=== PATIENT | male | born 1970 | race Caucasian/White ===

== ENCOUNTER 2019-08-20 04:31 | Emergency (ER) | payer OTHER, SELFPAY ==
[2019-08-20 04:33] VITALS: BP 191/100; PULSE 70; RESP 18; TEMP 37; O2SAT 96; BMI 34.4
--- NOTE | 2019-08-20 04:37 | CT_ITS ---
STUDY: CT ABDOMEN AND PELVIS WITHOUT CONTRAST REASON FOR EXAM: Male, 48 years old. RIGHT FLANK PAIN RADIATES TO RLQ RADIATION DOSAGE (If Supplied By Facility): CTDIvol = ( 17.76 ) mGy, DLP = ( 989.67 ) mGycm TECHNIQUE: Transaxial images were obtained from the dome of the diaphragm to the symphysis pubis without oral contrast, and without intravenous contrast. Sagittal and coronal images were reconstructed. Individualized dose optimization techniques were used for this CT. COMPARISON: None. FINDINGS: The visualized lung bases are unremarkable. The visualized portions of the heart are within normal limits. Normal liver. There is a small calcified gallstone in an otherwise grossly normal-appearing gallbladder. Normal spleen. There is diffuse atrophy of the pancreas. Normal bilateral adrenal glands. As seen on axial images 104-105, there is a 3.5 mm wide mid right ureteral calculus at the L4 level. There is associated mild right hydronephrosis. Normal left kidney. There is a small hiatal hernia. Normal small intestine. There are multiple colonic diverticula consistent with diverticulosis. The appendix is visualized on axial images 106-114 and it appears normal.. Normal abdominal aorta. Normal inferior vena cava. Normal retroperitoneum. Normal urinary bladder. There is surgical mesh underlying the anterior pelvic wall, consistent with previous hernia repair. There are multilevel degenerative changes of the visualized lumbar spine. CT/Abdomen/Pelvis without Cont IMPRESSION: 3.5 mm wide mid right ureteral calculus at the L4 level. There is associated mild right hydronephrosis. Colonic diverticulosis, without evidence for acute diverticulitis. Small hiatal hernia. Gallstone in an otherwise grossly normal appearing gallbladder. Electronically Signed: Sha Escalera MD at 5:52 EDT , Service support ,
--- NOTE | 2019-08-20 04:37 | ED.VIS.GEN ---
History of Present Illness Chief Complaint: Flank Pain Informant: Patient Onset: Today Context: Sudden Onset Current Severity: Moderate Maximum Severity: Severe Narrative: Patient presents with right flank pain that woke him from sleep at 3 AM. Patient denies known history of kidney stones. He felt fine when he went to bed last night. No recent change in urinating habits. - Past Medical History (1) H/O hernia repair Status: Chronic Past Medical History - Allergies and Home Meds Allergies/Adverse Reactions: Allergies No Known Allergies Allergy (Verified 08/20/19 04:37) Primary Care Physician: Marleni Pang PA [Primary Care Provider] - Surgical History: herniorrhaphy Lives: Spouse/ Significant Other Review of Systems General: Denies: Chills, Fever Eyes: Denies: Visual changes - bilaterally ENT: Denies: Bilateral ear pain Cardiovascular: Denies: Chest pain Respiratory: Denies: Dyspnea, Cough Gastrointestinal: Reports: Abdominal pain - Right flank. Denies: Nausea, Vomiting Genitourinary: Denies: Dysuria, Hematuria Musculoskeletal: Reports: Back pain - Right flank Skin: Denies: Rash Neurological: Denies: Headache, Weakness Hematologic: Denies: Easy bruising, Easy bleeding Allergy: Denies: Uticaria Physical Exam Vital Signs/Narrative: Vital Signs Temp Pulse Resp BP Pulse Ox 08/20/19 04:33 98.6 F 70 18 191/100 H 96 Inital Vital Signs reviewed: Yes General: Well nourished, Well developed Head: Normocephalic ENT: Moist mucous membranes Neck: Supple Cardiovascular: Regular rate, Regular rhythm Respiratory: No distress, CTA bilaterally Abdomen: Soft, Nontender, Normal bowel sounds Back: CVA tenderness Extremities: Nontender Skin: Normal color Neurological: Alert, Oriented x3 Psychological: - - Anxious Diagnostic/Tx/Re-eval Impressions Abdomen/Pelvis CT 08/20/19 04:37 IMPRESSION: 3.5 mm wide mid right ureteral calculus at the L4 level. There is associated mild right hydronephrosis. Colonic diverticulosis, without evidence for acute diverticulitis. Small hiatal hernia. Gallstone in an otherwise grossly normal appearing gallbladder. Electronically Signed: Sha Escalera MD at 5:52 EDT , Service support , 08/20/19 04:37 Abdomen/Pelvis without Cont [CT] Stat Laboratory Results 08/20/19 08/20/19 08/20/19 04:45 04:45 05:43 WBC 7.5 RBC 5.19 Hgb 14.4 Hct 44.1 MCV 85.0 MCH 27.7 MCHC 32.7 RDW Std Deviation 36.9 RDW Coeff of Contreras 12.0 Plt Count 195 MPV 9.7 Immature Gran % (Auto) 0.100 Neut % (Auto) 54.5 Lymph % (Auto) 34.1 [place] % (Auto) 7.3 Eos % (Auto) 3.3 Baso % (Auto) 0.7 Absolute Neuts (auto) 4.1 Absolute Lymphs (auto) 2.56 Nucleated RBC % 0 Sodium 139 Potassium 3.3 L Chloride 108 H Carbon Dioxide 26.0 Anion Gap 5 BUN 18 Creatinine 1.13 Estim Creat Clear Calc 83.30 Est GFR (MDRD) Af Amer 88 Est GFR (MDRD) Non-Af 73 BUN/Creatinine Ratio 15.9 Glucose 120 H Calcium 8.4 L Urine Color Yellow Urine Clarity Clear Urine pH 6.0 Ur Specific [place] 1.020 Urine Protein Negative Urine Glucose (UA) Normal Urine Ketones 15 H Urine Occult Blood 250 H Urine Nitrite Negative Urine Bilirubin Negative Urine Urobilinogen Normal Ur Leukocyte Esterase Negative Urine RBC 10-25 SEEN Urine WBC 0 SEEN Ur Squamous Epith Cells 0 SEEN Urine Bacteria 0 SEEN Urine Mucus 0 SEEN - Medical Decision Making Patient received Toradol, Zofran, and morphine for pain control. After CT scan he was given a second dose of morphine for continued pain. At this time patient is resting comfortably. We did discuss his test results. Stone is measuring 3.5 mm and he should be able to pass this. He will be given prescriptions for [place], Zofran, Toradol, and Flomax. He will be referred to Dr. Gould for follow-up. He is given return instructions. ED Disposition - Plan for ED Patient: Disposition: Home or Assisted Living Diagnosis: Kidney stone on right side Instructions: ED Renal Stone w Colic Prescriptions: Tamsulosin HCl [Flomax] 0.4 mg PO DAILY #7 capsule Hydrocodone Bitart/Apap 5-325 [[place] 5MG-325MG] 1 tablet PO Q6H PRN PRN 3 Days #10 tablet PRN Reason: Pain Ketorolac [Toradol] 10 mg PO Q6H PRN #14 tablet PRN Reason: Pain Score 4-10/10 Ondansetron [Zofran Odt] 4 mg PO Q8H PRN PRN #10 tablet PRN Reason: Nausea Referrals: George Gould MD [STAFF PHYSICIAN] - 3-5 Days if not improving
[2019-08-20] MEDS: 0.9% Normal Saline 1,000 ML 250 ML IV (04:47)
[2019-08-20] MEDS: Ondansetron 4 MG/2 ML Vial IV (04:48)
[2019-08-20] MEDS: Ketorolac 30 MG/ML Syringe IV (04:49)
[2019-08-20 04:51] VITALS: BP 183/109
[2019-08-20] MEDS: Morphine 4 MG/ML Syringe IV ×2 (04:51→05:55)
[2019-08-20 04:55] LABS: Absolute Lymphocyte Count 2.56 X10^3/uL (0.83-4.51); Absolute Neutrophil Count 4.1 X10^3/uL (2.0-7.7); Basophil# 0.05 X10^3/uL; Basophil% 0.7 % (0-1); Eosinophil# 0.25 X10^3/uL; Eosinophils% 3.3 % (0-5); Hematocrit 44.1 % (40-54); Hemoglobin 14.4 g/dL (13.0-16.5); Lymphocyte # 2.56 X10^3/ul (4.0); Lymphocyte % 34.1 % (19-41); Mean Corp Hgb Conc 32.7 g/dL (32-36); Mean Corpuscular Hgb 27.7 pg (27.0-32.0); Mean Platelet Vol. 9.7 fl (6.2-12.0); Monocyte# 0.55 X10^3/uL; Monocyte% 7.3 % (0-10); NRBC Flagged by Analyzer 0 % (0-5); Neutrophil # 4.08 X10^3/uL (2.7-7.7); Neutrophil % 54.5 % (47-70); Platelet Count 195 K/mm3 (150-450); RBC Distribution Width SD 36.9 fl (35.1-43.9); Red Blood Count 5.19 M/mm3 (4.6-6.2); White Blood Count 7.5 K/mm3 (4.4-11.0)
[2019-08-20 05:07] LABS: Anion Gap 5 (5-15); BUN 18 mg/dL (7-18); BUN/Creat Ratio 15.9 RATIO (10-20); Calcium,Total 8.4 mg/dL (8.5-10.1); Chloride 108 mmol/L (98-107); Creatinine, Serum 1.13 mg/dL (0.70-1.30); EST Glomerular Filtration Rate 73 mL/min (>60); Est Glom Filt Rate - Afr Amer 88 mL/min (>60); Glucose 120 mg/dL (74-106); Potassium 3.3 mmol/L (3.5-5.1); Sodium Level 139 mmol/L (136-145)
[2019-08-20 05:52] LABS: Bacteria 0 SEEN /hpf (None Seen); Color, Urine Yellow (Yellow); Glucose, Dipstick Normal (Normal); Ketone-Dipstick 15 mg/dl (Negative); Leukocyte Esterase-Dipstick Negative /ul (Negative); Mucous, Urine 0 SEEN /hpf (<or=2+); Nitrite-Dipstick Negative (Negative); Occult Blood-Urine 250 /ul (Negative); Protein-Dipstick Negative (Negative); Squamous Epithelial Cells - UA 0 SEEN /hpf (0-5); Urine Bilirubin Dipstick Negative (Negative); Urine Clarity Clear (Clear); Urine Urobilinogen Normal (Normal); White Blood Cells 0 SEEN /hpf (0-5)
[2019-08-20 05:58] VITALS: BP 188/99; PULSE 58; RESP 16; O2SAT 97
[2019-08-20 05:58] LABS: Red Blood Cells-Urine 10-25 SEEN /hpf (0-5)
[2019-08-20 06:17] VITALS: BP 188/98; PULSE 63; RESP 16; O2SAT 97
== END 2019-08-20 06:40 | disposition home or self-care (01) ==
PROVIDERS: Emergency Provider Emergency Medicine; PCP Physician Assistant
DX: N13.2 Hydronephrosis with renal and ureteral calculous obstruction (principal); K44.9 Diaphragmatic hernia without obstruction or gangrene; K57.30 Diverticulosis of large intestine without perforation or abscess without bleeding; K80.20 Calculus of gallbladder without cholecystitis without obstruction
CPT/HCPCS: 74176; 80048; 81001; 85025; 96361; 96374; 96375; 99283; J7030; A4216; J2405

== ENCOUNTER 2020-08-25 08:46 | Outpatient (RCR) | payer OTHER, SELFPAY | END 2020-09-29 23:59 | LOC: IMMUN 08:46 | PROVIDERS: PCP Physician Assistant; Referring Provider Family Medicine; Visit Provider Family Medicine | DX: Z23 Encounter for immunization (principal) | CPT/HCPCS: 0001A; 91300 ==

== ENCOUNTER 2023-04-14 02:05 | Emergency (ER) | payer OTHER, SELFPAY ==
[2023-04-14 02:07] VITALS: PULSE 84; RESP 16; TEMP 36.9; O2SAT 96; BMI 35.6
[2023-04-14 02:11] VITALS: BP 189/101
--- NOTE | 2023-04-14 02:12 | EDS_ITS ---
HPI History of Present Illness Chief Complaint: Flank Pain Informant: patient Onset/Context/Timing Onset: Today Context: Sudden Onset Timing: Continuous Quality: Aching Location: Left lower abdomen and left flank Worsened by: Nothing Relieved by: Nothing Narrative Narrative: Patient presents with left flank pain that began today. Patient states it began approxi-1 hour prior to arrival. Patient states it began rather suddenly. Patient states it has been constant. Patient describes the pain as aching. Patient states the pain is over the left lower abdomen and into his left flank. Patient states nothing makes it worse and nothing makes it better. Patient admi ts to a mild cough. Patient denies any nausea or vomiting. Patient denies any dysuria or hematuria. Patient admits to some back pain. Patient denies any fevers or chills. PFSH PFS Medical History (Updated 04/14/23 @ 05:[address] Israel Rice DO) HTN (hypertension) Kidney stone Home Medications latanoprost (PF) 0.005 % eye drops 7.5 ml OP DAILY 08/20/19 [History Last Taken Unknown] amlodipine 5 mg tablet 5 mg PO DAILY 04/14/23 [History Last Taken Unknown] losartan 50 mg tablet 50 mg PO DAILY 04/14/23 [History Last Taken Unknown] oxycodone-acetaminophen 5 mg-325 mg tablet 1 tab PO Q6H PRN PRN pain 5 days #20 TABLETS 04/14/23 [Rx Last Taken Unknown] Allergy/AdvReac Type Severity Reaction Status Date / Time No Known Allergies Allergy Verified 04/14/23 02:06 Surgical History (Updated 04/14/23 @ 02:[address] Israel Rice DO) H/O hernia repair Social History Smoking Status: Never smoker ROS ROS ED Constitutional Constitutional ED: Denies chills or fever(s) Eyes Eyes: Denies blurry vision or change in vision ENT ENT ED: Denies rhinorrhea or sore throat Cardiovascular Cardiovascular: Denies chest pain or palpitations Respiratory/Chest Respiratory/Chest: Reports cough; Denies dyspnea Gastrointestinal Gastrointestinal: Denies nausea or vomiting Genitourinary Genitourinary ED: Denies dysuria or hematuria Musculoskeletal Musculoskeletal: Reports back pain; Denies neck pain Integumentary Denies abscess or rash Neurologic Neurologic: Denies headache(s) or weakness Allergic/Immunologic Allergic/Immunologic ED: Denies mouth swelling or urticaria EXAM Physical Exam Const Vital Signs: 04/14/23 02:07 04/14/23 02:11 04/14/23 05:08 Temperature 98.5 F Temperature Source Oral Pulse Rate 84 74 Respiratory Rate 16 16 Blood Pressure 189/101 H Blood Pressure Mean 130 Pulse Ox 96 94 Oxygen Delivery Method Room Air 04/14/23 05:58 Temperature Temperature Source Pulse Rate 95 Respiratory Rate 20 H Blood Pressure 176/94 H Blood Pressure Mean 121 Pulse Ox 95 Oxygen Delivery Method Positive well nourished and well developed General Appearance ED: well developed and NAD HEENT Reports moist mucous membranes Neck supple and no JVD Resp normal respiratory effort and clear to auscultation bilaterally Cardio regular rate and regular rhythm GI Palpation: soft and tender LLQ and LUQ; Negative for guarding or rebound tenderness present Back/Spine General Back: CVA tenderness left Extremity normal to inspection General Extremety ED: Negative for edema or tenderness General Extremity: Negative for edema Neuro oriented x3, CN's II-XII intact bilaterally and no sensory deficits noted Sensorium / Orientation: alert Motor Exam: strength 5/5 throughout MDM MDM MDM Narrative Medical decision making narrative: Differential diagnosis includes diverticulitis, diverticulosis, ureteral calculus, bowel obstruction, perforation, urinary tract infection, pyelonephritis, and gastroenteritis. CBC will be obtained to assess for leukocytosis and anemia. Basic metabolic profile will be obtained to assess for renal function and electrolyte abnormality. Urinalysis will be obtained to assess for urinary tract infection and hematuria. CT scan of the abdomen pelvis will be obtained to assess for ureteral calculus, diverticulitis, bowel obstruction, and perforation. Lab Data Attestation: I reviewed the patient's lab results. Lab results narrative: CBC was reviewed and was within normal limits. Basic metabolic profile was reviewed and was within normal limits. Urinalysis was reviewed. There are 5-10 red blood cells and occult blood of 150. There is no evidence of urinary tract infection. Labs: Laboratory Results - last 24 hr 04/14/23 04/14/23 02:25 04:28 WBC 6.5 RBC 5.16 Hgb 14.6 Hct 45.2 MCV 87.6 MCH 28.3 MCHC 32.3 RDW Std Deviation 38.3 RDW Coeff of [place]reras 11.9 Plt Count 188 MPV 9.6 Immature Gran % (Auto) 0.300 Neut % (Auto) 61.2 Lymph % (Auto) 23.9 [place] % (Auto) 8.9 Eos % (Auto) 4.9 Baso % (Auto) 0.8 Absolute Neuts (auto) 4.0 Absolute Lymphs (auto) 1.55 Nucleated RBC % 0 Sodium 139 Potassium 3.8 Chloride 109 H Carbon Dioxide 27.0 Anion Gap 3 L BUN 20 H Creatinine 1.17 Estim Creat Clear Calc 76.87 Est GFR (MDRD) Af Amer 83 Est GFR (MDRD) Non-Af 69 BUN/Creatinine Ratio 17.1 Glucose 148 H Calcium 8.9 Urine Color Yellow Urine Clarity Clear Urine pH 7.0 Ur Specific [place] 1.015 Urine Protein 15 H Urine Glucose (UA) Normal Urine Ketones 5 H Urine Occult Blood 150 H Urine Nitrite Negative Urine Bilirubin Negative Urine Urobilinogen Normal Ur Leukocyte Esterase Negative Urine RBC 5-10 SEEN Urine WBC 0 SEEN Ur Squamous Epith Cells 0 SEEN Urine Bacteria 0 SEEN Urine Mucus 0 SEEN Radiography Diagnostic Testing: Clinical Impression(s) from Imaging Studies Abdomen/Pelvis CT 04/14/23 02:25 IMPRESSION: 1. There is a 3 mm stone in the left mid ureter causing mild obstructive changes. 2. Small stone in the gallbladder. Electronically Signed: Rodríguez Goldberg MD at 3:24 EST , CT scan of the abdomen pelvis was obtained. There is a 3 mm stone in the left mid ureter causing mild obstructive changes. There is also a small stone in the gallbladder noted. This was interpreted by the radiologist and was also independently reviewed by myself. Treatment and Re-Evaluation :: Patient was given IV fluids, morphine, and Zofran. Patient was feeling better on reevaluation. Patient was given a prescription for Percocet. Patient was instructed to drink plenty of fluids. Patient was given a referral for urology follow-up. Patient was instructed to return if worse in any way. Patient understood and was agreeable with the plan. All questions were answered. Discharge Plan Triage Chief Complaint: Flank Pain ED Provider: Israel Rice Dx/Rx/DC Orders Clinical Impression: Calculus of left ureter, Hypertension Instructions: ED Kidney Stone with Pain Prescriptions: New oxycodone-acetaminophen [oxycodone-acetaminophen] 5-325 mg tablet 1 tab PO Q6H PRN PRN (Reason: pain) 5 Days Qty: 20 0RF No Action latanoprost (PF) 7.5 ML drops 7.5 ml OP DAILY losartan 50 mg tablet 50 mg PO DAILY Patient Comments: take 1 tablet by mouth once daily amlodipine 5 mg tablet 5 mg PO DAILY Patient Comments: take 1 tablet by mouth once daily Primary Care Provider: Desirae Worthington NP Referrals: George Gould MD [Med Staff - Active Staff] - 3-5 Days NOT,DEFINED [Non-Staff] - Desirae Worthington NP, [employer] [Primary Care Provider] - 3-5 Days Disposition Disposition: Home, Self Care Discharge Date/Time: 04/14/23 05:59
--- NOTE | 2023-04-14 02:25 | CT_ITS ---
EXAM: CT ABDOMEN AND PELVIS WITHOUT INTRAVENOUS CONTRAST CLINICAL INDICATION: Left flank pain TECHNIQUE: Helically acquired images were obtained of the abdomen and pelvis without intravenous contrast. This CT exam was performed using one or more of the following dose reduction techniques: automated exposure control, adjustment of the mA and/or kV according to patient size, and/or use of iterative reconstruction technique. RADIATION DOSE: CTDIvol = 19.96 mGy, DLP = 1142.00 mGy-cm COMPARISON: No relevant prior studies available. FINDINGS: LOWER THORAX: Small hiatal hernia. Lung bases are clear. No cardiomegaly. No significant pericardial effusion. ABDOMEN: LIVER: Unremarkable. Homogeneous. GALLBLADDER AND BILE DUCTS: Small stone in the gallbladder. No gallbladder distention or wall edema. No intra- or extrahepatic biliary ductal dilation. PANCREAS: Some fatty atrophy of the pancreas. No focal cystic mass. SPLEEN: Unremarkable. Normal size without focal cystic or solid mass. ADRENALS: Unremarkable. No nodules. KIDNEYS AND URETERS: There is a 3 mm stone in the left mid ureter causing mild obstructive changes. Normal renal size and position. STOMACH AND BOWEL: Unremarkable. No stomach or bowel distention. No focal inflammatory change. PELVIS: APPENDIX: The appendix is normal. BLADDER: Unremarkable. REPRODUCTIVE: Unremarkable as visualized. No mass. ABDOMEN and PELVIS: INTRAPERITONEAL SPACE: Unremarkable. No ascites or other fluid collection. No free air. BONES/JOINTS: Degenerative changes of the spine. No suspicious lytic or blastic abnormality. SOFT TISSUES: Prior low ventral abdominal wall hernia repair. VASCULATURE: Unremarkable. Abdominal aorta is non-dilated. LYMPH NODES: Unremarkable. No enlarged lymph nodes. CT/Abdomen/Pelvis without Cont IMPRESSION: 1. There is a 3 mm stone in the left mid ureter causing mild obstructive changes. 2. Small stone in the gallbladder. Electronically Signed: Rodríguez Goldberg MD at 3:24 EST ,
[2023-04-14] MEDS: Ondansetron 4 MG/2 ML Vial IV (02:35)
[2023-04-14] MEDS: 0.9% Normal Saline (1000mL) 1,000 ML 1000 ML IV (02:35)
[2023-04-14] MEDS: Morphine 4 MG/ML Syringe IV ×2 (02:35→03:18)
[2023-04-14 02:42] LABS: Absolute Lymphocyte Count 1.55 X10^3/uL (0.83-4.51); Basophil# 0.05 X10^3/uL; Basophil% 0.8 % (0-1); Eosinophil# 0.32 X10^3/uL; Eosinophils% 4.9 % (0-5); Hematocrit 45.2 % (40-54); Hemoglobin 14.6 g/dL (13.0-16.5); Lymphocyte # 1.55 X10^3/ul (0.83-4.51); Lymphocyte % 23.9 % (19-41); Mean Corp Hgb Conc 32.3 g/dL (32-36); Mean Corpuscular Hgb 28.3 pg (27.0-32.0); Mean Corpuscular Volume 87.6 fL (80-94); Mean Platelet Vol. 9.6 fl (6.2-12.0); Monocyte# 0.58 X10^3/uL; Monocyte% 8.9 % (0-10); NRBC Flagged by Analyzer 0 % (0-5); Neutrophil # 3.97 X10^3/uL (2.7-7.7); Neutrophil % 61.2 % (47-70); Platelet Count 188 K/mm3 (150-450); RBC Distribution Width CV 11.9 % (11.6-14.6); RBC Distribution Width SD 38.3 fl (35.1-43.9); Red Blood Count 5.16 M/mm3 (4.6-6.2); White Blood Count 6.5 K/mm3 (4.4-11.0)
[2023-04-14 02:55] LABS: Anion Gap 3 (5-15); BUN 20 mg/dL (7-18); BUN/Creat Ratio 17.1 RATIO (10-20); Calcium,Total 8.9 mg/dL (8.5-10.1); Chloride 109 mmol/L (98-107); Creatinine, Serum 1.17 mg/dL (0.70-1.30); EST Glomerular Filtration Rate 69 mL/min (>60); Est Glom Filt Rate - Afr Amer 83 mL/min (>60); Estimated Creatinine Clearance 76.87 ml/min; Glucose 148 mg/dL (74-106); Potassium 3.8 mmol/L (3.5-5.1); Sodium Level 139 mmol/L (136-145)
[2023-04-14 04:33] LABS: Bacteria 0 SEEN /hpf (None Seen); Mucous, Urine 0 SEEN /hpf (<or=2+); Squamous Epithelial Cells - UA 0 SEEN /hpf (0-5); White Blood Cells 0 SEEN /hpf (0-5)
[2023-04-14 04:34] LABS: Color, Urine Yellow (Yellow); Glucose, Dipstick Normal (Normal); Ketone-Dipstick 5 mg/dl (Negative); Leukocyte Esterase-Dipstick Negative /ul (Negative); Nitrite-Dipstick Negative (Negative); Occult Blood-Urine 150 /ul (Negative); Protein-Dipstick 15 mg/dl (Negative); Specific Gravity, Urine 1.015 (1.002-1.030); Urine Bilirubin Dipstick Negative (Negative); Urine Clarity Clear (Clear); Urine Urobilinogen Normal (Normal)
[2023-04-14 04:42] LABS: Red Blood Cells-Urine 5-10 SEEN /hpf (0-5)
[2023-04-14 05:08] VITALS: PULSE 74; RESP 16; O2SAT 94
[2023-04-14 05:58] VITALS: BP 176/94; PULSE 95; RESP 20; O2SAT 95
== END 2023-04-14 05:59 | disposition home or self-care (01) ==
PROVIDERS: Emergency Provider Emergency Medicine; PCP Registered Nurse; Visit Provider Emergency Medicine
DX: N20.1 Calculus of ureter (principal); I10 Essential (primary) hypertension; Z79.899 Other long term (current) drug therapy
CPT/HCPCS: 74176; 80048; 81001; 85025; 96361; 96374; 96375; 96376; 99283; J7030; A4216; J2405